=== PATIENT | male | born 1995 | race African-American/Black ===

== ENCOUNTER 2017-09-17 20:44 | Emergency (ER) | payer OTHER ==
[~2017-09-17] VITALS: Ht 165.1 cm; Wt 65.6 kg
[~2017-09-17 20:44] MED LIST: ACULAR0.5 % OD; ADVAIR DISK1 IN; ALBUTEROL90 MCG IN; ALDACTONE50 M1 OR; AMOX/K CLAV400 MG OR; AMOXICILLI400 MG/5 M OR; AMOXICILLIN500 MG PO; ANUSOL-HC25 MG RE; ASPIRIN ADULT L81 MG PO; AUGMENTIN500TAB PO; B6 FOLIC ACD PO; BACTRIM DS1 TAB PO; CALCIUM600 M3 PO; CEPHALEXIN500 MG OR; CLARITIN5 MG PO; CO Q-10100 MG PO; COLACE100 MG OR; COREG3.125 MG OR; DIGITEK0.125 MG OR; DIGOXIN0.25 MG OR; ENALAPRIL5 MG OR; FLAGYL500 MG PO; FLONASE SPRAY50 MCG; FLOVENT HFA44 MCG IN; KEFLEX500 MG PO; KENALOG15 G1 TOP; LASIX20 MG OR; LASIX20 MG PO; LASIX40 MG OR; LIDOCAINE VISC20 ML EX; LORTAB 10-325 M1 TAB PO; MIRALAX3350 NF PO; MOTRIN600 MG/TAB PO; MYCOPHENOLAT500 MG OR; NAPROSYN500 MG PO; NASONEX50 MCG/AC; PREDNISONE20 MG PO; PREDNISONE5 MG PO; PROBIOTIC; PROGRAF1 MG OR; PROGRAF5 MG PO; PROGRAF5 MG/ML PO; PROTONIX20 M1 OR; REGLAN10 MG PO; REGLAN10 MG/10 M OR; ROBITUSSIN AC10 ML PO; SEPTRA DS1 TAB PO; SINGULAIR5 MG PO; ULTRAM50 M1 OR; ULTRAM50 M1 PO; VALCYTE450 MG OR; VITAMIN B-625 MG PO; VITAMIN D31000 UNI1 PO; XOPENEX0.31 MG IN; ZANTAC 150 PO; ZOFRAN ODT4 MG PO; ZOFRAN4 MG/TAB PO; ZYRTEC10 M1 OR; [UNRECOGNIZED DRUG - OTHER] OR; [UNRECOGNIZED DRUG - OTHER] PO; [UNRECOGNIZED DRUG - REMARK]
[2017-09-17 23:44] LABS: URINE BILIRUBIN - DIPSTICK NEGATIVE (NEGATIVE); URINE BLOOD DIPSTICK NEGATIVE (NEGATIVE); URINE COLOR YELLOW; URINE GLUCOSE - DIPSTICK NEGATIVE (NEGATIVE); URINE KETONE NEGATIVE (NEGATIVE); URINE LEUK ESTERASE NEGATIVE (NEGATIVE); URINE NITRITE - DIPSTICK NEGATIVE (Negative); URINE PROTEIN - DIPSTICK NEGATIVE (NEG-TRACE); URINE UROBILINOGEN - DIPSTICK 0.2 E.U./dL (0.2)
[2017-09-17 23:45] LABS: URINE CLARITY CLEAR
[2017-09-18 01:30] VITALS: BP 106/72
== END 2017-09-18 01:30 | disposition home or self-care (01) | DRG 729 ==
LOC: ED 20:44
PROVIDERS: Emergency Medicine
DX: N43.3 Hydrocele, unspecified (principal); L98.8 Other specified disorders of the skin and subcutaneous tissue; G71.0 Muscular dystrophy; Z94.1 Heart transplant status; Z99.3 Dependence on wheelchair

== ENCOUNTER 2018-03-12 07:50 | Emergency (ER) | payer OTHER ==
[~2018-03-12] VITALS: Ht 167.6 cm; Wt 80.0 kg
[2018-03-12 09:07] VITALS: BP 124/94
== END 2018-03-12 09:07 | disposition home or self-care (01) ==
LOC: ED 07:50
DX: S93.401A Sprain of unspecified ligament of right ankle, initial encounter (principal); S93.601A Unspecified sprain of right foot, initial encounter; M25.471 Effusion, right ankle; G71.0 Muscular dystrophy; W04.XXXA Fall while being carried or supported by other persons, initial encounter; Y93.89 Activity, other specified; Y92.009 Unspecified place in unspecified non-institutional (private) residence as the place of occurrence of the external cause

== ENCOUNTER → 2018-06-08 | Outpatient (REF) | payer OTHER ==
[~2018-06-08] VITALS: Ht 167.6 cm; Wt 59.9 kg
[~2018-06-08] MED LIST changes: +AZITHROMYC100 MG/5 M PO; +LISINOPRIL5 MG PO; +METOPROLOL SUCC25 MG PO; +RAPAMUNE0.5 MG PO; +ZYRTEC10 M5 PO; +[UNRECOGNIZED DRUG - OTHER] IV
[2018-06-08 12:20] VITALS: BP 95/67
== END | disposition home or self-care (01) ==
LOC: INF 10:15
PROVIDERS: ATTEND Nurse Practitioner
DX: G71.00 Muscular dystrophy, unspecified (principal)

== ENCOUNTER 2018-06-12 18:15 | Emergency (ER) | payer OTHER ==
[~2018-06-12] VITALS: Ht 167.6 cm; Wt 60.0 kg
[~2018-06-12 18:15] MED LIST changes: -AZITHROMYC100 MG/5 M PO; -LISINOPRIL5 MG PO; -METOPROLOL SUCC25 MG PO; -RAPAMUNE0.5 MG PO; -ZYRTEC10 M5 PO; -[UNRECOGNIZED DRUG - OTHER] IV
[2018-06-12] MEDS ORDERED: PROGRAF5 MG PO (18:27)
[2018-06-12] MEDS ORDERED: [UNRECOGNIZED DRUG - OTHER] IV (18:28)
[2018-06-12] MEDS ORDERED: RAPAMUNE0.5 MG PO (18:32)
[2018-06-12] MEDS ORDERED: AZITHROMYC100 MG/5 M PO (18:34)
[2018-06-12] MEDS ORDERED: ZYRTEC10 M5 PO (18:35)
[2018-06-12] MEDS ORDERED: LISINOPRIL5 MG PO (18:54)
[2018-06-12] MEDS ORDERED: METOPROLOL SUCC25 MG PO (18:55)
[2018-06-12 19:29] LABS: HEMOGLOBIN 14.7 g/dl (14.0-18.0); MEAN CELL VOLUME 89.6 fL CALC (80.0-100.0); MEAN CORPUSCULAR HGB 29.9 pG CALC (26.0-32.0); MEAN CORPUSCULAR HGB CONC 33.4 g/L CALC (32.0-36.0); NEUT# 2.83 thou/uL (1.82-7.42); RED BLOOD COUNT 4.91 mill/uL (4.70-6.10); RED CELL DISTRI WIDTH 13.3 % (11.5-15.5)
[2018-06-12 19:40] LABS: ANION GAP 15 (6-22 (CALC)); BUN 12 mg/dL (9-20); BUN/CREATININE RATIO 54 (12-20 (CALC)); CARBON DIOXIDE 25 mmol/l (22-30); CHLORIDE 106 mmol/l (95-108); CREATININE 0.2 mg/dL (0.7-1.3); GFR > 60 ML/MIN (>=60 (CALC)); GFR FOR AFR.AMER. > 60 ML/MIN (>=60 (CALC)); POTASSIUM 3.6 mmol/l (3.5-5.1); SODIUM 143 mmol/l (137-146)
[2018-06-13 00:26] VITALS: BP 98/68
== END 2018-06-13 00:26 | disposition other institution (70) ==
LOC: ED 18:15
PROVIDERS: Family Medicine
DX: R07.9 Chest pain, unspecified (principal); G71.00 Muscular dystrophy, unspecified; Z94.1 Heart transplant status

== ENCOUNTER 2018-09-21 12:40 | Emergency (ER) | payer OTHER ==
[~2018-09-21] VITALS: Ht 167.6 cm; Wt 61.4 kg
[~2018-09-21 12:40] MED LIST changes: +AZITHROMYC100 MG/5 M PO; +LISINOPRIL5 MG PO; +METOPROLOL SUCC25 MG PO; +RAPAMUNE0.5 MG PO; +ZYRTEC10 M5 PO; +[UNRECOGNIZED DRUG - OTHER] IV
[2018-09-21] MEDS ORDERED: ZITHROMAX500 MG PO (15:09)
[2018-09-21 15:11] VITALS: BP 104/65
== END 2018-09-21 15:16 | disposition home or self-care (01) ==
LOC: ED 12:40
DX: J02.9 Acute pharyngitis, unspecified (principal); R05 Cough; Z94.1 Heart transplant status

== ENCOUNTER 2018-10-19 11:43 | Outpatient (REF) | payer MEDICAID ==
[~2018-10-19] VITALS: Ht 167.6 cm; Wt 61.2 kg
[~2018-10-19 11:43] MED LIST changes: +ZITHROMAX500 MG PO
[2018-10-19 13:05] VITALS: BP 109/74
== END 2018-10-19 15:22 | disposition home or self-care (01) ==
LOC: INF 11:43
PROVIDERS: ATTEND Psychiatry & Neurology Neurology with Special Qualifications in Child Neurology
DX: G71.00 Muscular dystrophy, unspecified (principal)

== ENCOUNTER 2018-10-26 11:31 | Outpatient (REF) | payer MEDICAID ==
[~2018-10-26] VITALS: Ht 167.6 cm; Wt 61.2 kg
[2018-10-26 14:24] VITALS: BP 109/68
== END 2018-10-26 16:59 | disposition home or self-care (01) ==
LOC: INF 11:31
PROVIDERS: ATTEND Psychiatry & Neurology Neurology with Special Qualifications in Child Neurology
DX: G71.00 Muscular dystrophy, unspecified (principal)

== ENCOUNTER 2018-11-01 10:00 | Outpatient (RCR) | payer MEDICAID | END 2018-11-01 11:00 | disposition home or self-care (01) | LOC: OT 10:00 | PROVIDERS: ATTEND Pediatrics | DX: G71.00 Muscular dystrophy, unspecified (principal) ==

== ENCOUNTER 2018-11-01 11:00 | Outpatient (RCR) | payer MEDICAID | END 2018-11-01 12:00 | disposition home or self-care (01) | LOC: PT 11:00 | PROVIDERS: ATTEND Pediatrics | DX: G71.00 Muscular dystrophy, unspecified (principal) ==

== ENCOUNTER → 2018-11-02 | Outpatient (REF) | payer MEDICAID ==
[~2018-11-02] VITALS: Ht 167.6 cm; Wt 60.3 kg
[2018-11-02 13:04] VITALS: BP 109/68
== END | disposition home or self-care (01) ==
LOC: INF 11:00
PROVIDERS: ATTEND Psychiatry & Neurology Neurology with Special Qualifications in Child Neurology
DX: G71.00 Muscular dystrophy, unspecified (principal)

== ENCOUNTER 2018-11-09 12:51 | Outpatient (REF) | payer MEDICAID ==
[2018-11-09 13:41] VITALS: BP 102/68
== END 2018-11-09 14:31 | disposition home or self-care (01) ==
LOC: INF 12:51
PROVIDERS: ATTEND Psychiatry & Neurology Neurology with Special Qualifications in Child Neurology
DX: G71.00 Muscular dystrophy, unspecified (principal)

== ENCOUNTER 2018-11-16 12:14 | Outpatient (REF) | payer MEDICAID ==
[2018-11-16 15:40] VITALS: BP 100/66
== END 2018-11-16 15:50 | disposition home or self-care (01) ==
LOC: INF 12:14
PROVIDERS: ATTEND Psychiatry & Neurology Neurology with Special Qualifications in Child Neurology
DX: G71.00 Muscular dystrophy, unspecified (principal)

== ENCOUNTER → 2018-11-23 | Outpatient (REF) | payer MEDICAID ==
[2018-11-23 13:36] VITALS: BP 105/62
== END | disposition home or self-care (01) ==
LOC: INF 11:00
PROVIDERS: ATTEND Psychiatry & Neurology Neurology with Special Qualifications in Child Neurology
DX: G71.00 Muscular dystrophy, unspecified (principal)

== ENCOUNTER 2018-11-30 12:13 | Emergency (ER) | payer MEDICAID ==
[~2018-11-30] VITALS: Ht 167.6 cm; Wt 60.0 kg
[2018-11-30 13:29] LABS: HEMATOCRIT 49.5 % (39.0-50.0); HEMOGLOBIN 16.3 g/dl (14.0-18.0); IMMATURE GRANULOCYTES 0.5 % (0.0-5.0); MEAN CELL VOLUME 90.5 fL CALC (80.0-100.0); MEAN CORPUSCULAR HGB 29.8 pG CALC (26.0-32.0); MEAN CORPUSCULAR HGB CONC 32.9 g/L CALC (32.0-36.0); NEUT# 5.93 thou/uL (1.82-7.42); RED BLOOD COUNT 5.47 mill/uL (4.70-6.10)
[2018-11-30 13:39] LABS: ALBUMIN 4.5 g/dL (3.2-5.0); ALKALINE PHOSPHATASE 58 u/l (38-126); ANION GAP 17 (6-22 (CALC)); BILIRUBIN, TOTAL 0.9 mg/dL (0.0-1.4); BUN 14 mg/dL (9-20); CARBON DIOXIDE 21 mmol/l (22-30); CHLORIDE 105 mmol/l (95-108); LIPASE 100 u/l (23-300); POTASSIUM 2.9 mmol/l (3.5-5.1); SGOT/AST 63 u/l (17-59); SODIUM 140 mmol/l (137-146); TOTAL PROTEIN 7.4 g/dL (6.3-8.2)
[2018-11-30 13:40] LABS: BUN/CREATININE RATIO 70 (12-20 (CALC)); CREATININE 0.2 mg/dL (0.7-1.3); GFR > 60 ML/MIN (>=60 (CALC)); GFR FOR AFR.AMER. > 60 ML/MIN (>=60 (CALC))
[2018-11-30 18:29] LABS: ANION GAP 15 (6-22 (CALC)); BUN 9 mg/dL (9-20); CARBON DIOXIDE 18 mmol/l (22-30); CHLORIDE 112 mmol/l (95-108); CREATININE < 0.2 mg/dL (0.7-1.3); GFR > 60 ML/MIN (>=60 (CALC)); GFR FOR AFR.AMER. > 60 ML/MIN (>=60 (CALC)); SODIUM 141 mmol/l (137-146)
[2018-11-30] MEDS ORDERED: ZITHROMAX500 MG PO (19:14)
[2018-11-30] MEDS ORDERED: ZOFRAN4 MG/TAB PO (19:14)
[2018-11-30 19:18] LABS: URINE BILIRUBIN - DIPSTICK NEGATIVE (NEGATIVE); URINE BLOOD DIPSTICK NEGATIVE (NEGATIVE); URINE COLOR YELLOW; URINE GLUCOSE - DIPSTICK NEGATIVE (NEGATIVE); URINE KETONE 40 mg/dL (NEGATIVE); URINE LEUK ESTERASE NEGATIVE (NEGATIVE); URINE NITRITE - DIPSTICK NEGATIVE (Negative); URINE PROTEIN - DIPSTICK TRACE mg/dL (NEG-TRACE); URINE UROBILINOGEN - DIPSTICK 0.2 E.U./dL (0.2)
[2018-11-30 20:20] VITALS: BP 102/62
== END 2018-11-30 20:25 | disposition home or self-care (01) ==
LOC: ED 12:13
PROVIDERS: Emergency Medicine
DX: K52.9 Noninfective gastroenteritis and colitis, unspecified (principal); E86.0 Dehydration; Z94.1 Heart transplant status; R19.7 Diarrhea, unspecified; R11.2 Nausea with vomiting, unspecified; R10.33 Periumbilical pain
CPT/HCPCS: Q9967

== ENCOUNTER 2019-08-02 | Observation (INO) | payer MEDICAID ==
--- NOTE | 2019-08-02 11:32 | NUR ---
PT TO ROOM FOR EXAM PER W/C
--- NOTE | 2019-08-02 11:50 | NUR ---
RIGHT SUBCLAVIAN PORT ACCESSED; PT TOLERATED WELL; LABS OBTAINED AND PT MEDICATED FOR LOWER BACK PAIN RATING 10 OUT OF 10 PER MAR; MOTHER AT BEDSIDE; PT TO RADIOLOGY IN STABLE CONDITION
[2019-08-02 12:31] LABS: HEMATOCRIT 44.8 % (39.0-50.0); HEMOGLOBIN 14.7 g/dl (14.0-18.0); IMMATURE GRANULOCYTES 0.3 % (0.0-5.0); MEAN CELL VOLUME 88.9 fL CALC (80.0-100.0); MEAN CORPUSCULAR HGB 29.2 pG CALC (26.0-32.0); MEAN CORPUSCULAR HGB CONC 32.8 g/L CALC (32.0-36.0); NEUT# 3.24 thou/uL (1.82-7.42); RED BLOOD COUNT 5.04 mill/uL (4.70-6.10); RED CELL DISTRI WIDTH 13.2 % (11.5-15.5)
--- NOTE | 2019-08-02 12:50 | NUR ---
PT C/O CONTINUED N/V AND LOWER BACK PAIN RATING 10 OUT OF 10 PT HAD 200 ML OF BILE COLORED EMESIS NOTED; MD NOTIFIED AND PT MEDICATED PER MAR; MONITORING DEVICES APPLIED; PARENTS AT BEDSIDE; WILL CONTINUE TO MONITOR
[2019-08-02 12:55] LABS: ALKALINE PHOSPHATASE 60 u/l (38-126); BILIRUBIN, TOTAL 0.4 mg/dL (0.0-1.4); BUN 13 mg/dL (9-20); CHLORIDE 104 mmol/l (95-108); LIPASE 29 u/l (23-300); SODIUM 139 mmol/l (137-146)
[2019-08-02 13:03] LABS: ALBUMIN 4.5 g/dL (3.2-5.0); ANION GAP 18 (6-22 (CALC)); BUN/CREATININE RATIO 65 (12-20 (CALC)); CARBON DIOXIDE 20 mmol/l (22-30); CREATININE 0.2 mg/dL (0.7-1.3); GFR > 60 ML/MIN (>=60 (CALC)); GFR FOR AFR.AMER. > 60 ML/MIN (>=60 (CALC)); SGOT/AST 74 u/l (17-59); TOTAL PROTEIN 7.7 g/dL (6.3-8.2)
--- NOTE | 2019-08-02 13:50 | NUR ---
PT RESTING ON STRETCHER; C/O CONTINUED PAIN; STATES NAUSEA HAS RESOLVED; VSS; PARENTS AT BEDSIDE; CALL LIGHT WITHIN REACH; WILL CONTINUE TO MONITOR
--- NOTE | 2019-08-02 14:20 | NUR ---
PT MEDICATED FOR LOWER BACK PAIN RATING 9 OUT OF 10 PER MAR; MONITORING DEVICES IN PLACE; PARENTS AT BEDSIDE; CALL LIGHT WITHIN REACH; WILL CONTINUE TO MONITOR
[2019-08-02 14:33] LABS: URINE BILIRUBIN - DIPSTICK NEGATIVE (NEGATIVE); URINE BLOOD DIPSTICK LARGE (NEGATIVE); URINE COLOR RED; URINE GLUCOSE - DIPSTICK NEGATIVE (NEGATIVE); URINE KETONE NEGATIVE (NEGATIVE); URINE LEUK ESTERASE NEGATIVE (NEGATIVE); URINE NITRITE - DIPSTICK NEGATIVE (Negative); URINE PH 5.5 (4.5-8.0); URINE PROTEIN - DIPSTICK 100 mg/dL (NEG-TRACE); URINE RBC TNTC RBC/hpf (0-5); URINE SPECIFIC GRAVITY >=1.030; URINE UROBILINOGEN - DIPSTICK 0.2 E.U./dL (0.2)
[2019-08-02 14:34] LABS: URINE SQUAMOUS EPITHELIAL CELL FEW EPI/hpf (0-FEW)
--- NOTE | 2019-08-02 15:18 | NUR ---
PT RESTING ON STRETCHER; NO S/S OF DISTRESS NOTED; VSS; PARENTS AT BEDSIDE; WILL CONTINUE TO MONITOR
--- NOTE | 2019-08-02 16:18 | NUR ---
PT RESTING ON STRETCHER; NO S/S OF DISTRESS NOTED; PT TOLERATING PO FLUIDS WELL; PARENTS AT BEDSIDE; MONITORING DEVICES IN PLACE; CALL LIGHT WITHIN REACH; WILL CONTINUE TO MONITOR
[2019-08-02] MEDS ORDERED: PLAVIX75 MG PO (16:41)
[2019-08-02] MEDS ORDERED: LASIX 20 MG TAB20 MG PO (16:43)
--- NOTE | 2019-08-02 17:15 | NUR ---
CONSENT FOR SURGERY OBTAINED AT THIS TIME FROM MOTHER AND PT; DENIES ANY OTHER NEEDS AT THIS TIME; VSS; CALL LIGHT WITHIN REACH; WILL CONTINUE TO MONITOR
--- NOTE | 2019-08-02 17:50 | NUR ---
Admission Note Report Given to: THOM Transported by: Wheelchair X Stretcher Transported with: X Nurse Transporter X Patent IV O2 Pot Firer
--- NOTE | 2019-08-02 18:06 | NUR ---
RECEIVED FROM ER VIA STRETCHER INTO ROOM 268. TRANSFERRED TO BED. ADMISION VS TAKE. ORIENTED TO SURROUNDINGS. CALL VERDUZCO IN REACH. FAMILY AT BEDISDE.
--- NOTE | 2019-08-02 19:00 | NUR ---
PATIENT MOM HAS TALKED TO PATIENTS DONOR RELATIONS OFFICER AT [facility] [place] THEY WANT HIM TRANSFERRED THERE. DISCUSSED WITH Tashia ARDON/ALECIA.
--- NOTE | 2019-08-02 19:30 | NUR ---
RESTING IN BED. RESP NON-LABORED, LUNGS CLEAR THROUGHOUT. ABD SOFT WITH BOWEL SOUNDS PRESENT. APTIENT STATES WAS VOIDING BLOOD AT HOME. HAS NOT VOIDED SINCE ARRIVAL TO UNIT. RIGHT CHEST PORT ACCESSED IN ER, DSG CDI.
--- NOTE | 2019-08-02 19:52 | NUR ---
called [facility] [place]. spoke to jace at [phone]. Gave information regarding pt and accepting physician stated she will call them and talk to the doctors and will call back with an update.
[2019-08-02 21:10] VITALS: BP 100/68
--- NOTE | 2019-08-02 21:15 | NUR ---
[facility] CONTACTED AT THIS TIME FOR TRANSPORT TO [facility]. BORING MACHINE FEEDER SPOKE WITH MEIR. EXPECTING CALL BACK WITH RAFAEL CARR.
--- NOTE | 2019-08-02 21:50 | NUR ---
PT C/O RIGHT FLANK AND LOWER BACK PAIN 9-10. DR ORTEGA NOTIFIED AT THIS TIME. PAIN MEDICATION ORDERS RECEIVED AT THIS TIME. WILL MEDICATE WHEN PROFILED.
--- NOTE | 2019-08-02 22:32 | NUR ---
BED NUMBER RECEIEVED FROM RENAE AT [facility]. PT WILL BE GOING TO BED #[id number]. FAMILY MADE AWARE.
--- NOTE | 2019-08-02 23:50 | NUR ---
NURSE TO NURSE REPORT CALLED TO KRISTIE AT [facility]. PT LEFT VIA [facility] IN STABLE CONDITION.
== END 2019-08-02 23:41 | disposition short-term general hospital (02) ==
PROVIDERS: ADMIT Internal Medicine
DX: N13.2 Hydronephrosis with renal and ureteral calculous obstruction (principal); G71.01 Duchenne or Becker muscular dystrophy; Z94.1 Heart transplant status
CPT/HCPCS: G0378

== ENCOUNTER 2019-10-26 | Emergency (ER) | payer MEDICAID ==
[~2019-10-26] MED LIST changes: +LASIX 20 MG TAB20 MG PO; +PLAVIX75 MG PO
[2019-10-26 23:41] LABS: HEMATOCRIT 42.7 % (39.0-50.0); HEMOGLOBIN 13.8 g/dl (14.0-18.0); IMMATURE GRANULOCYTES 0.4 % (0.0-5.0); MEAN CELL VOLUME 90.3 fL CALC (80.0-100.0); MEAN CORPUSCULAR HGB 29.2 pG CALC (26.0-32.0); MEAN CORPUSCULAR HGB CONC 32.3 g/L CALC (32.0-36.0); NEUT# 6.64 thou/uL (1.82-7.42); RED BLOOD COUNT 4.73 mill/uL (4.70-6.10); RED CELL DISTRI WIDTH 13.4 % (11.5-15.5)
[2019-10-26] MEDS ORDERED: HYDROCHLOROT12.5 MG PO (23:48)
[2019-10-26 23:52] LABS: ALBUMIN 3.7 g/dL (3.2-5.0); ALKALINE PHOSPHATASE 44 u/l (38-126); ANION GAP 9 (6-22 (CALC)); BILIRUBIN, TOTAL 0.6 mg/dL (0.0-1.4); BUN 16 mg/dL (9-20); BUN/CREATININE RATIO 80 (12-20 (CALC)); CARBON DIOXIDE 24 mmol/l (22-30); CHLORIDE 106 mmol/l (95-108); CREATININE 0.2 mg/dL (0.7-1.3); GFR > 60 ML/MIN (>=60 (CALC)); GFR FOR AFR.AMER. > 60 ML/MIN (>=60 (CALC)); POTASSIUM 3.2 mmol/l (3.5-5.1); SGOT/AST 66 u/l (17-59); SODIUM 136 mmol/l (137-146); TOTAL PROTEIN 6.3 g/dL (6.3-8.2)
[2019-10-27] MEDS ORDERED: AMOX/K CLAV875 M1 PO (00:54)
[2019-10-27] MEDS ORDERED: IBUPROFEN600 MG PO (00:54)
== END 2019-10-27 01:40 | disposition home or self-care (01) ==
PROVIDERS: Emergency Medicine
DX: L02.02 Furuncle of face (principal); G71.01 Duchenne or Becker muscular dystrophy; Z94.1 Heart transplant status; Z79.899 Other long term (current) drug therapy
CPT/HCPCS: Q9967

== ENCOUNTER 2020-03-20 11:51 | Observation (INO) | payer MEDICAID ==
[~2020-03-20] VITALS: Ht 165.1 cm; Wt 67.2 kg
[~2020-03-20 11:51] MED LIST changes: +AMOX/K CLAV875 M1 PO; +HYDROCHLOROT12.5 MG PO; +IBUPROFEN600 MG PO
--- NOTE | 2020-03-20 12:05 | NUR ---
PT TO ROOM VIA WC WITH FATHER FOR TRIAGE
[2020-03-20 12:26] LABS: HEMATOCRIT 48.4 % (39.0-50.0); HEMOGLOBIN 15.4 g/dl (14.0-18.0); IMMATURE GRANULOCYTES 0.7 % (0.0-5.0); MEAN CELL VOLUME 90.8 fL CALC (80.0-100.0); MEAN CORPUSCULAR HGB 28.9 pG CALC (26.0-32.0); MEAN CORPUSCULAR HGB CONC 31.8 g/dL CAL (32.0-36.0); NEUT# 5.45 thou/uL (1.82-7.42); RED BLOOD COUNT 5.33 mill/uL (4.70-6.10); RED CELL DISTRI WIDTH 13.2 % (11.5-15.5)
[2020-03-20 12:38] LABS: ALBUMIN 4.3 g/dL (3.2-5.0); ALKALINE PHOSPHATASE 45 u/l (38-126); ANION GAP 12 (6-22 (CALC)); BUN 12 mg/dL (9-20); CARBON DIOXIDE 25 mmol/l (22-30); CHLORIDE 100 mmol/l (95-108); POTASSIUM 2.8 mmol/l (3.5-5.1); SGOT/AST 49 u/l (17-59); SODIUM 135 mmol/l (137-146); TOTAL PROTEIN 7.1 g/dL (6.3-8.2)
--- NOTE | 2020-03-20 12:40 | NUR ---
REC'D CALL FROM FAMILY SERVICES ASSISTANT AT [facility] THAT IS INVOLVED IN [facility] PROVIDED WITH 2 MD NUMBERS FOR CALL WHEN SEES PATIENT TO DISCUSS PLAN OF CARE RELATED TO PT HISTORY. [phone] NOTIFIED
[2020-03-20 12:43] LABS: BILIRUBIN, TOTAL 0.9 mg/dL (0.0-1.4); BUN/CREATININE RATIO 60 (12-20 (CALC)); CREATININE 0.2 mg/dL (0.7-1.3); GFR > 60 ML/MIN (>=60 (CALC)); GFR FOR AFR.AMER. > 60 ML/MIN (>=60 (CALC))
--- NOTE | 2020-03-20 13:48 | NUR ---
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
--- NOTE | 2020-03-20 13:50 | NUR ---
DR YOON IN ROOM SPEAKING WITH PT REGARDING RESULTS.
--- NOTE | 2020-03-20 14:22 | NUR ---
IV MAGNESIUM AND POTASSIUM INFUSING ORDERED, TOOK PO POTAASSIUM WITHOUT INCIDENT, FATHER REMAINS AT BEDSIDE
--- NOTE | 2020-03-20 15:32 | NUR ---
REPORT CALLED TO DYANA ON MED SURG
--- NOTE | 2020-03-20 15:50 | NUR ---
PT ARRIVED TO [facility] ROOM 269 VIA STRETCHER ACCOMPAINED BY MACY VILLAFANA AND HIS FATHER. PT SLIDE FROM STRETCHER TO BED WITH NO DIFFICULTY. 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 ASSESSMENT AND VITALS OBTAINED AT THIS TIME. BP 100/72, HR 86, O2 100% ON ROOM AIR. RESPIRATIONS ARE EVEN AND UNLABORED WITH NO SIGNS OF DIFFICULTY. LUNG SOUNDS ARE CLEAR, PT DENIES ANY SOB. HEART RHYTHM IS NORMAL WITH TELE IN PLACE. PT INFORMS WRITTER THAT HE HAS HAD A HEART TRANSPLANT. BOWEL SOUNDS ARE ACTIVE IN ALL QUADRANTS WITH NO TEDNERNESS, LAST REPORTED BM 03/19/20. RADIAL AND PEDAL PULSES ARE WEAK WITH NORMAL CAPILLARY REFILL.PT PRESENTS WITH PORT IN RIGHT CHEST WALL, ACCESSED TODAY. MAG AND K CURRENT FLOWING WITH EASE, SITE APPEARS HEALTHY AND PATENT. SKIN IS WARM AND DRY WITH NO BREAK DOWN OR EDEMA. PT INFORMED WRITTER THAT HIS FEET ARE" NOT SWOLLEN, THEIR JUST CHUBBY". PT INFORMS WRITTER THAT HE PRESENTED TO THE ER WHEN HE STARTED HAVING A BURNING SENSATION IN HIS THROAT WIHEN RECIEVING HIS WEEKLY INFUSION FOR HIS MUSCULAR DYSTROPHY. PT STATES THAT HE NO LONGER HAS THAT SENSATION AND DOESNT HAVE ANY CURRENT PAINS.REMINDED PT OF REJECTION MEDICATION THAT WAS NEEDED TO BE BROUGHT TO HOSPITAL DUE TO HOSPITAL NOT CARRYING THEM. PT VERBALIZED UNDERSTANDING AND STATED THAT HIS MOTHER WAS TO BRING THEM.PT DENIES ANY ALLERGIES, ALLERGY BAND APPLIED. PT DENIES ANY PAINS OR NEEDS AT THIS TIME. ALL SAFETY PRECAUTIONS ARE IN PLACE, PT ORIENTED TO CALL SYSTEM AND ROOM. WILL CONTINUE TO MONITOR.
--- NOTE | 2020-03-20 15:55 | NUR ---
PT TRANSPORTED TO MED SURG ON TELE, ALL BELONGINGS AND DAD WITH PT AT TIME OF TRANSFER, NURSE AT BEDSIDE ON ARRIVAL TO UNIT
[2020-03-20 16:00] VITALS: BP 100/72
[2020-03-20 19:24] VITALS: BP 97/67
--- NOTE | 2020-03-20 20:20 | NUR ---
PT LAYING IN BED RESTING, NO APPARENT DISTRESS, RESPIRATIONS REG & UNLABORED. PHYSICAL ASSESMENT COMPLETE. PT CURRENTLY DENIES PAIN OR DISCOMFORT. SCHEDULED MEDS ADMINISTERED, SEE E-MAR. PTS MOTHER AT BEDSIDE. TROPONIN LEVEL DRAWN FROM R CHEST PORT, PORT FLUSHED PER [facility]. PT DENIES NEEDS AT THIS TIME. PLAN OF CARE REVIEWED, PT DENIES QUESTIONS, VERBALIZES UNDERSTANDING. ITEMS WITHIN REACH, BED LOCKED IN LOW POSITION W/ BEDRAILS UP X2. CALL VERDUZCO WITHIN REACH, AGREES TO CALL PRN.
--- NOTE | 2020-03-20 21:59 | NUR ---
TROPONIN RESULTED AND WNL. NO FURTHER ACTION NEEDED.
[2020-03-20 23:48] VITALS: BP 83/53
--- NOTE | 2020-03-21 01:50 | NUR ---
PT APPEARS TO BE SLEEPING COMFORTABLY, NO APPARENT DISTRESS, RESPIRATIONS REGULAR AND UNLABORED. ITEMS REMAIN WITHIN REACH, BED REMAINS LOCKED IN LOW POSITION W/ BEDRAILS UP X2. CALL VERDUZCO REMAINS WITHIN REACH.
--- NOTE | 2020-03-21 03:05 | NUR ---
AM LABS DRAWN FROM R CHEST PORT, PORT FLUSHED PER [facility] PROTOCOL, SEE E-MAR. PT REPOSITIONED FOR COMFORT PER HIS REQUEST. DENIES FURTHER NEEDS AT THIS TIME. CALL VERDUZCO REMAINS WITHIN REACH, AGREES TO CALL PRN.
--- NOTE | 2020-03-21 04:30 | NUR ---
TROPONIN RESULTED, RESULTS ASSESSED, NO INTERVENTION NECESSARY. NEXT TROPONIN DUE 0900.
[2020-03-21 04:31] VITALS: BP 86/65
[2020-03-21 05:35] LABS: CHOLESTEROL HDL RATIO 2.6 (<4.4 (CALC))
[2020-03-21 06:22] LABS: BUN 12 mg/dL (9-20); CARBON DIOXIDE 27 mmol/l (22-30); CHLORIDE 100 mmol/l (95-108); CREATININE < 0.2 mg/dL (0.7-1.3); GFR > 60 ML/MIN (>=60 (CALC)); GFR FOR AFR.AMER. > 60 ML/MIN (>=60 (CALC)); SODIUM 133 mmol/l (137-146)
[2020-03-21 06:24] LABS: ANION GAP 10 (6-22 (CALC)); POTASSIUM 4.3 mmol/l (3.5-5.1)
[2020-03-21 08:10] VITALS: BP 100/69
--- NOTE | 2020-03-21 08:10 | NUR ---
ASSESSMENT IS COMPLTED: IV SITE IS FREE FROM REDNESS OR EDEMA. HR IS REG,PULSES ARE STRONG X4, ABD IS SOFT WITH ACTIVE BS. BREATH SOUNDS ARE CLEAR,BILATERALLY. TELE MONITOR IN PLACE.PT HAD A SMALL INCONTINENCE OF UA THIS AM.
[2020-03-21 10:30] VITALS: BP 109/74
--- NOTE | 2020-03-21 11:55 | NUR ---
DISCHARGE INSTRUCTIONS AND IV SITE DISCONTINUED CATHETER INTACT. NO REDNESS OR EDEMA. HOME MEDICATIONS GIVEN TO FAMILY MEMBER.
--- NOTE | 2020-03-21 12:00 | NUR ---
PT DISCHARGED. IV SITE DISCONTINUED BY MARYJO CAVAZOS AFTER FLUSHING WITH HEPARIN. PT TOLERATED WELL. FAMILY IN THE ROOM.
--- NOTE | 2020-03-21 13:48 | NUR ---
Discharge instructions given. Patient verbalizes understanding of same. Discharged in stable condition via Wheelchair to Home with family. All belongings sent with pt.
== END 2020-03-21 12:00 | disposition home or self-care (01) ==
LOC: ED 11:51 → ED-I 13:28 → ED 13:45 → ED-I 13:46 → MS2 14:35
PROVIDERS: Family Medicine; ADMIT Internal Medicine; ATTEND Internal Medicine
DX: R07.9 Chest pain, unspecified (principal); E83.42 Hypomagnesemia; E87.6 Hypokalemia; I10 Essential (primary) hypertension; G71.01 Duchenne or Becker muscular dystrophy; Z94.1 Heart transplant status; Z95.5 Presence of coronary angioplasty implant and graft; Z20.828 Contact with and (suspected) exposure to other viral communicable diseases
CPT/HCPCS: G0378; J3475

== ENCOUNTER 2020-09-21 08:52 | Emergency (ER) | payer MEDICAID ==
[~2020-09-21] VITALS: Ht 165.1 cm; Wt 70.0 kg
[2020-09-21 10:11] VITALS: BP 116/73
== END 2020-09-21 11:06 | disposition home or self-care (01) ==
LOC: ED 08:52
DX: M25.521 Pain in right elbow (principal); M79.631 Pain in right forearm; I10 Essential (primary) hypertension; G71.01 Duchenne or Becker muscular dystrophy; Z94.1 Heart transplant status; Z95.5 Presence of coronary angioplasty implant and graft

== ENCOUNTER 2020-10-28 09:09 | Emergency (ER) | payer MEDICAID ==
[~2020-10-28] VITALS: Ht 165.1 cm; Wt 65.0 kg
[2020-10-28 09:52] LABS: HEMATOCRIT 43.8 % (39.0-50.0); HEMOGLOBIN 13.9 g/dl (14.0-18.0); IMMATURE GRANULOCYTES 0.5 % (0.0-5.0); MEAN CELL VOLUME 90.1 fL CALC (80.0-100.0); MEAN CORPUSCULAR HGB 28.6 pG CALC (26.0-32.0); MEAN CORPUSCULAR HGB CONC 31.7 g/dL CAL (32.0-36.0); NEUT# 4.68 thou/uL (1.82-7.42); RED BLOOD COUNT 4.86 mill/uL (4.70-6.10); RED CELL DISTRI WIDTH 13.5 % (11.5-15.5)
[2020-10-28 09:59] LABS: URINE BLOOD DIPSTICK LARGE (NEGATIVE); URINE COLOR BROWN; URINE GLUCOSE - DIPSTICK NEGATIVE (NEGATIVE); URINE KETONE TRACE mg/dL (NEGATIVE); URINE LEUK ESTERASE NEGATIVE (NEGATIVE); URINE NITRITE - DIPSTICK NEGATIVE (Negative); URINE PH 6.5 (4.5-8.0); URINE PROTEIN - DIPSTICK TRACE mg/dL (NEG-TRACE); URINE SPECIFIC GRAVITY 1.025; URINE UROBILINOGEN - DIPSTICK 0.2 E.U./dL (0.2)
[2020-10-28 10:11] LABS: URINE BILIRUBIN - DIPSTICK SMALL (NEGATIVE)
[2020-10-28 10:13] LABS: URINE RBC >100 RBC/hpf (0-5); URINE WBC 0-2 WBC/hpf (0-5)
[2020-10-28 10:19] LABS: ALBUMIN 3.9 g/dL (3.2-5.0); ALKALINE PHOSPHATASE 47 u/l (38-126); ANION GAP 10 (6-22 (CALC)); BILIRUBIN, TOTAL 0.7 mg/dL (0.0-1.4); BUN 11 mg/dL (9-20); CARBON DIOXIDE 28 mmol/l (22-30); CHLORIDE 101 mmol/l (95-108); CREATININE < 0.2 mg/dL (0.7-1.3); GFR > 60 ML/MIN (>=60 (CALC)); GFR FOR AFR.AMER. > 60 ML/MIN (>=60 (CALC)); LIPASE 38 u/l (23-300); SGOT/AST 51 u/l (17-59); SODIUM 135 mmol/l (137-146); TOTAL PROTEIN 6.5 g/dL (6.3-8.2)
[2020-10-28] MEDS ORDERED: HYDROCO/APAP1 TA9 PO (10:42)
[2020-10-28] MEDS ORDERED: TAMSULOSIN0.4 MG PO (10:42)
[2020-10-28] MEDS ORDERED: ONDANSETRON4 MG PO (10:42)
[2020-10-28 11:10] VITALS: BP 106/72
== END 2020-10-28 11:20 | disposition home or self-care (01) ==
LOC: ED 09:09
PROVIDERS: Family Medicine
DX: N20.2 Calculus of kidney with calculus of ureter (principal); I10 Essential (primary) hypertension; G71.01 Duchenne or Becker muscular dystrophy; Z94.1 Heart transplant status; Z95.5 Presence of coronary angioplasty implant and graft; Z87.442 Personal history of urinary calculi

== ENCOUNTER 2021-02-15 02:17 | Emergency (ER) | payer MEDICAID ==
[~2021-02-15] VITALS: Ht 165.1 cm; Wt 65.0 kg
[~2021-02-15 02:17] MED LIST changes: +HYDROCO/APAP1 TA9 PO; +ONDANSETRON4 MG PO; +TAMSULOSIN0.4 MG PO
[2021-02-15 04:02] LABS: HEMATOCRIT 45.7 % (39.0-50.0); HEMOGLOBIN 14.3 g/dl (14.0-18.0); IMMATURE GRANULOCYTES 0.8 % (0.0-5.0); MEAN CELL VOLUME 92.5 fL CALC (80.0-100.0); MEAN CORPUSCULAR HGB 28.9 pG CALC (26.0-32.0); MEAN CORPUSCULAR HGB CONC 31.3 g/dL CAL (32.0-36.0); NEUT# 6.56 thou/uL (1.82-7.42); RED BLOOD COUNT 4.94 mill/uL (4.70-6.10); RED CELL DISTRI WIDTH 13.8 % (11.5-15.5)
[2021-02-15 04:09] LABS: ALBUMIN 3.7 g/dL (3.2-5.0); ALKALINE PHOSPHATASE 60 u/l (38-126); ANION GAP 10 (6-22 (CALC)); BUN 20 mg/dL (9-20); BUN/CREATININE RATIO 31 (12-20 (CALC)); CARBON DIOXIDE 28 mmol/l (22-30); CHLORIDE 104 mmol/l (95-108); CREATININE 0.7 mg/dL (0.7-1.3); GFR > 60 ML/MIN (>=60 (CALC)); GFR FOR AFR.AMER. > 60 ML/MIN (>=60 (CALC)); POTASSIUM 4.3 mmol/l (3.5-5.1); SGOT/AST 73 u/l (17-59); SODIUM 137 mmol/l (137-146); TOTAL PROTEIN 6.2 g/dL (6.3-8.2)
[2021-02-15 04:10] LABS: BILIRUBIN, TOTAL 0.2 mg/dL (0.0-1.4)
[2021-02-15 05:25] VITALS: BP 110/81
== END 2021-02-15 05:35 | disposition home or self-care (01) ==
LOC: ED 02:17
PROVIDERS: Emergency Medicine
DX: R60.0 Localized edema (principal); G71.01 Duchenne or Becker muscular dystrophy; I10 Essential (primary) hypertension; Z94.1 Heart transplant status

== ENCOUNTER 2021-07-11 10:15 | Emergency (ER) | payer MEDICAID ==
[~2021-07-11] VITALS: Ht 165.1 cm; Wt 65.7 kg
[2021-07-11 11:31] LABS: HEMATOCRIT 43.4 % (39.0-50.0); HEMOGLOBIN 13.7 g/dl (14.0-18.0); IMMATURE GRANULOCYTES 0.4 % (0.0-5.0); MEAN CELL VOLUME 91.6 fL CALC (80.0-100.0); MEAN CORPUSCULAR HGB 28.9 pG CALC (26.0-32.0); MEAN CORPUSCULAR HGB CONC 31.6 g/dL CAL (32.0-36.0); NEUT# 8.31 thou/uL (1.82-7.42); RED BLOOD COUNT 4.74 mill/uL (4.70-6.10); RED CELL DISTRI WIDTH 14.6 % (11.5-15.5)
[2021-07-11 11:51] LABS: ALBUMIN 3.9 g/dL (3.2-5.0); ALKALINE PHOSPHATASE 45 u/l (38-126); ANION GAP 10 (6-22 (CALC)); BILIRUBIN, TOTAL 0.8 mg/dL (0.0-1.4); BUN 11 mg/dL (9-20); CARBON DIOXIDE 28 mmol/l (22-30); CHLORIDE 103 mmol/l (95-108); SGOT/AST 38 u/l (17-59); SODIUM 136 mmol/l (137-146); TOTAL PROTEIN 6.5 g/dL (6.3-8.2)
[2021-07-11 11:53] LABS: BUN/CREATININE RATIO 55 (12-20 (CALC)); CREATININE 0.2 mg/dL (0.7-1.3); GFR > 60 ML/MIN (>=60 (CALC)); GFR FOR AFR.AMER. > 60 ML/MIN (>=60 (CALC))
[2021-07-11] MEDS ORDERED: ULTRAM50 MG PO (13:26)
[2021-07-11] MEDS ORDERED: BACTRIM DS1 TAB PO (13:26)
[2021-07-11 13:57] VITALS: BP 121/83
[2021-07-11] MEDS ORDERED: DOXYCYCL HYC100 MG PO (14:02)
== END 2021-07-11 13:55 | disposition home or self-care (01) ==
LOC: ED 10:15
DX: L73.9 Follicular disorder, unspecified (principal); G71.01 Duchenne or Becker muscular dystrophy; I10 Essential (primary) hypertension; Z94.1 Heart transplant status; Z99.3 Dependence on wheelchair; Z95.5 Presence of coronary angioplasty implant and graft
CPT/HCPCS: Q9967

== ENCOUNTER 2021-08-21 09:02 | Emergency (ER) | payer MEDICAID ==
[~2021-08-21] VITALS: Ht 165.1 cm; Wt 70.9 kg
[~2021-08-21 09:02] MED LIST changes: +DOXYCYCL HYC100 MG PO; +ULTRAM50 MG PO
[2021-08-21 10:02] LABS: URINE BILIRUBIN - DIPSTICK NEGATIVE (NEGATIVE); URINE BLOOD DIPSTICK MODERATE (NEGATIVE); URINE COLOR YELLOW; URINE GLUCOSE - DIPSTICK NEGATIVE (NEGATIVE); URINE KETONE 15 mg/dL (NEGATIVE); URINE LEUK ESTERASE NEGATIVE (NEGATIVE); URINE PROTEIN - DIPSTICK NEGATIVE (NEG-TRACE); URINE SPECIFIC GRAVITY >=1.030; URINE UROBILINOGEN - DIPSTICK 0.2 E.U./dL (0.2)
[2021-08-21 10:14] LABS: URINE NITRITE - DIPSTICK NEGATIVE (Negative)
[2021-08-21 10:26] LABS: URINE WBC 0-2 WBC/hpf (0-5)
[2021-08-21 10:36] LABS: IMMATURE GRANULOCYTES 0.3 % (0.0-5.0); MEAN CELL VOLUME 91.6 fL CALC (80.0-100.0); MEAN CORPUSCULAR HGB 29.3 pG CALC (26.0-32.0); NEUT# 10.14 thou/uL (1.82-7.42); RED BLOOD COUNT 5.22 mill/uL (4.70-6.10); RED CELL DISTRI WIDTH 13.3 % (11.5-15.5)
[2021-08-21 10:42] LABS: ALKALINE PHOSPHATASE 56 u/l (38-126); ANION GAP 16 (6-22 (CALC)); BILIRUBIN, TOTAL 0.7 mg/dL (0.0-1.4); BUN 14 mg/dL (9-20); CARBON DIOXIDE 26 mmol/l (22-30); CHLORIDE 103 mmol/l (95-108); LIPASE 32 u/l (23-300); POTASSIUM 3.3 mmol/l (3.5-5.1); SODIUM 142 mmol/l (137-146); TOTAL PROTEIN 7.7 g/dL (6.3-8.2)
[2021-08-21 10:49] LABS: ALBUMIN 4.4 g/dL (3.2-5.0); BUN/CREATININE RATIO 70 (12-20 (CALC)); CREATININE 0.2 mg/dL (0.7-1.3); GFR > 60 ML/MIN (>=60 (CALC)); GFR FOR AFR.AMER. > 60 ML/MIN (>=60 (CALC)); SGOT/AST 96 u/l (17-59)
[2021-08-21 10:52] LABS: HEMATOCRIT 47.8 % (39.0-50.0); HEMOGLOBIN 15.3 g/dl (14.0-18.0)
[2021-08-21 12:21] VITALS: BP 99/64
[2021-08-21] MEDS ORDERED: ZOFRAN4 MG/TAB PO (12:36)
== END 2021-08-21 13:00 | disposition home or self-care (01) ==
LOC: ED 09:02
DX: K52.9 Noninfective gastroenteritis and colitis, unspecified (principal); E87.6 Hypokalemia; G82.20 Paraplegia, unspecified; I10 Essential (primary) hypertension; Z94.1 Heart transplant status; Z95.5 Presence of coronary angioplasty implant and graft; Z20.822 Contact with and (suspected) exposure to COVID-19
CPT/HCPCS: Q9967

== ENCOUNTER 2021-12-02 10:13 | Emergency (ER) | payer MEDICAID ==
[~2021-12-02] VITALS: Ht 165.1 cm; Wt 70.0 kg
[2021-12-02 10:39] VITALS: BP 129/92
[2021-12-02 11:19] LABS: IMMATURE GRANULOCYTES 0.6 % (0.0-5.0); MEAN CELL VOLUME 93.3 fL CALC (80.0-100.0); MEAN CORPUSCULAR HGB 29.4 pG CALC (26.0-32.0); MEAN CORPUSCULAR HGB CONC 31.5 g/dL CAL (32.0-36.0); NEUT# 4.54 thou/uL (1.82-7.42); RED BLOOD COUNT 4.35 mill/uL (4.70-6.10); RED CELL DISTRI WIDTH 13.7 % (11.5-15.5)
[2021-12-02 11:22] LABS: HEMATOCRIT 40.6 % (39.0-50.0); HEMOGLOBIN 12.8 g/dl (14.0-18.0)
[2021-12-02 11:41] LABS: URINE BILIRUBIN - DIPSTICK NEGATIVE (NEGATIVE); URINE BLOOD DIPSTICK NEGATIVE (NEGATIVE); URINE COLOR YELLOW; URINE GLUCOSE - DIPSTICK NEGATIVE (NEGATIVE); URINE KETONE NEGATIVE (NEGATIVE); URINE LEUK ESTERASE NEGATIVE (NEGATIVE); URINE PH 5.5 (4.5-8.0); URINE PROTEIN - DIPSTICK NEGATIVE (NEG-TRACE); URINE SPECIFIC GRAVITY >=1.030; URINE UROBILINOGEN - DIPSTICK 0.2 E.U./dL (0.2)
[2021-12-02 11:47] LABS: URINE NITRITE - DIPSTICK NEGATIVE (Negative)
[2021-12-02 11:53] LABS: ALBUMIN 3.6 g/dL (3.2-5.0); ALKALINE PHOSPHATASE 58 u/l (38-126); ANION GAP 11 (6-22 (CALC)); BILIRUBIN, TOTAL 0.3 mg/dL (0.0-1.4); BUN 11 mg/dL (9-20); BUN/CREATININE RATIO 51 (12-20 (CALC)); CARBON DIOXIDE 25 mmol/l (22-30); CHLORIDE 106 mmol/l (95-108); CREATININE 0.2 mg/dL (0.7-1.3); GFR > 60 ML/MIN (>=60 (CALC)); GFR FOR AFR.AMER. > 60 ML/MIN (>=60 (CALC)); POTASSIUM 3.6 mmol/l (3.5-5.1); SGOT/AST 40 u/l (17-59); SODIUM 139 mmol/l (137-146); TOTAL PROTEIN 6.2 g/dL (6.3-8.2)
[2021-12-02] MEDS ORDERED: PERCOCET 5/325M1 TAB PO (12:55)
[2021-12-02] MEDS ORDERED: ONDANSETRON ODT8 MG PO (12:55)
[2021-12-02 13:03] VITALS: BP 129/92
== END 2021-12-02 13:55 | disposition home or self-care (01) ==
LOC: ED 10:13
PROVIDERS: Internal Medicine
DX: N20.0 Calculus of kidney (principal); G71.00 Muscular dystrophy, unspecified; I10 Essential (primary) hypertension; Z94.1 Heart transplant status; Z95.5 Presence of coronary angioplasty implant and graft; Z87.442 Personal history of urinary calculi

== ENCOUNTER 2021-12-31 21:08 | Emergency (ER) | payer MEDICAID ==
[~2021-12-31] VITALS: Ht 165.1 cm; Wt 67.0 kg
[~2021-12-31 21:08] MED LIST changes: +ONDANSETRON ODT8 MG PO; +PERCOCET 5/325M1 TAB PO
[2021-12-31 21:22] VITALS: BP 106/60
[2021-12-31 21:31] VITALS: BP 149/120
[2021-12-31 22:00] VITALS: BP 111/76
[2021-12-31] MEDS ORDERED: NAPROXEN500 MG PO (22:00)
[2021-12-31 23:18] VITALS: BP 111/76
== END 2021-12-31 22:30 | disposition home or self-care (01) ==
LOC: ED 21:08
DX: S43.111A Subluxation of right acromioclavicular joint, initial encounter (principal); G82.20 Paraplegia, unspecified; I10 Essential (primary) hypertension; X50.0XXA Overexertion from strenuous movement or load, initial encounter; Z94.1 Heart transplant status; Z95.5 Presence of coronary angioplasty implant and graft; Z99.3 Dependence on wheelchair

== ENCOUNTER 2022-01-23 09:34 | Emergency (ER) | payer MEDICAID ==
[~2022-01-23] VITALS: Ht 165.1 cm; Wt 67.0 kg
[~2022-01-23 09:34] MED LIST changes: +NAPROXEN500 MG PO
[2022-01-23 10:34] VITALS: BP 107/76
== END 2022-01-23 11:16 | disposition home or self-care (01) ==
LOC: ED 09:34
DX: J02.9 Acute pharyngitis, unspecified (principal); I10 Essential (primary) hypertension; Z94.1 Heart transplant status; Z95.5 Presence of coronary angioplasty implant and graft; Z20.822 Contact with and (suspected) exposure to COVID-19

== ENCOUNTER 2022-02-26 00:03 | Emergency (ER) | payer MEDICAID ==
[~2022-02-26] VITALS: Ht 165.1 cm; Wt 70.0 kg
[2022-02-26 00:11] VITALS: BP 98/66
[2022-02-26 00:56] LABS: HEMATOCRIT 43.8 % (39.0-50.0); HEMOGLOBIN 13.7 g/dl (14.0-18.0); IMMATURE GRANULOCYTES 0.5 % (0.0-5.0); MEAN CELL VOLUME 94.4 fL CALC (80.0-100.0); MEAN CORPUSCULAR HGB 29.5 pG CALC (26.0-32.0); MEAN CORPUSCULAR HGB CONC 31.3 g/dL CAL (32.0-36.0); NEUT# 7.42 thou/uL (1.82-7.42); RED BLOOD COUNT 4.64 mill/uL (4.70-6.10); RED CELL DISTRI WIDTH 14.3 % (11.5-15.5)
[2022-02-26 01:07] LABS: ALBUMIN 3.8 g/dL (3.2-5.0); ALKALINE PHOSPHATASE 57 u/l (38-126); ANION GAP 11 (6-22 (CALC)); BILIRUBIN, TOTAL 0.3 mg/dL (0.0-1.4); BUN 10 mg/dL (9-20); BUN/CREATININE RATIO 30 (12-20 (CALC)); CARBON DIOXIDE 27 mmol/l (22-30); CHLORIDE 103 mmol/l (95-108); CREATININE 0.3 mg/dL (0.7-1.3); GFR FOR AFR.AMER. > 60 ML/MIN (>=60 (CALC)); GFR OTHER RACES > 60 ML/MIN (>=60 (CALC)); SGOT/AST 42 u/l (17-59); SODIUM 136 mmol/l (137-146); TOTAL PROTEIN 6.4 g/dL (6.3-8.2)
[2022-02-26 01:10] LABS: POTASSIUM 4.7 mmol/l (3.5-5.1)
[2022-02-26 01:15] VITALS: BP 104/65
[2022-02-26 01:19] LABS: MYOGLOBIN 110 ng/mL (0 - 121)
[2022-02-26 01:30] VITALS: BP 113/74
[2022-02-26 01:41] VITALS: BP 113/74
== END 2022-02-26 01:41 | disposition home or self-care (01) ==
LOC: ED 00:03
PROVIDERS: Emergency Medicine
DX: R60.0 Localized edema (principal); R51.9 Headache, unspecified; G71.00 Muscular dystrophy, unspecified; I10 Essential (primary) hypertension; Z94.1 Heart transplant status; Z20.822 Contact with and (suspected) exposure to COVID-19

== ENCOUNTER 2022-03-02 10:34 | Emergency (ER) | payer MEDICAID ==
[~2022-03-02] VITALS: Ht 165.1 cm; Wt 70.4 kg
[2022-03-02 11:27] LABS: HEMOGLOBIN 13.8 g/dl (14.0-18.0); IMMATURE GRANULOCYTES 0.6 % (0.0-5.0); MEAN CELL VOLUME 94.2 fL CALC (80.0-100.0); MEAN CORPUSCULAR HGB 29.6 pG CALC (26.0-32.0); MEAN CORPUSCULAR HGB CONC 31.4 g/dL CAL (32.0-36.0); NEUT# 4.56 thou/uL (1.82-7.42); RED BLOOD COUNT 4.67 mill/uL (4.70-6.10); RED CELL DISTRI WIDTH 13.7 % (11.5-15.5)
[2022-03-02 11:27] LABS: URINE BILIRUBIN - DIPSTICK NEGATIVE (NEGATIVE); URINE BLOOD DIPSTICK LARGE (NEGATIVE); URINE COLOR YELLOW; URINE GLUCOSE - DIPSTICK NEGATIVE (NEGATIVE); URINE KETONE 15 mg/dL (NEGATIVE); URINE LEUK ESTERASE NEGATIVE (NEGATIVE); URINE PH 8.5 (4.5-8.0); URINE PROTEIN - DIPSTICK NEGATIVE (NEG-TRACE); URINE SPECIFIC GRAVITY 1.015; URINE UROBILINOGEN - DIPSTICK 0.2 E.U./dL (0.2)
[2022-03-02 11:30] LABS: URINE NITRITE - DIPSTICK NEGATIVE (Negative)
[2022-03-02 11:31] LABS: URINE RBC >100 RBC/hpf (0-5); URINE WBC 0-2 WBC/hpf (0-5)
[2022-03-02 11:38] LABS: ALBUMIN 3.8 g/dL (3.2-5.0); ALKALINE PHOSPHATASE 47 u/l (38-126); ANION GAP 12 (6-22 (CALC)); BUN 10 mg/dL (9-20); CARBON DIOXIDE 26 mmol/l (22-30); CHLORIDE 99 mmol/l (95-108); CREATININE < 0.2 mg/dL (0.7-1.3); GFR FOR AFR.AMER. > 60 ML/MIN (>=60 (CALC)); GFR OTHER RACES > 60 ML/MIN (>=60 (CALC)); LIPASE 24 u/l (23-300); POTASSIUM 4.2 mmol/l (3.5-5.1); SGOT/AST 43 u/l (17-59); SODIUM 134 mmol/l (137-146); TOTAL PROTEIN 6.3 g/dL (6.3-8.2)
[2022-03-02 11:39] LABS: BILIRUBIN, TOTAL 0.6 mg/dL (0.0-1.4)
[2022-03-02] MEDS ORDERED: TAMSULOSIN0.4 MG PO (12:38)
[2022-03-02] MEDS ORDERED: HYDROCO/APAP1 TA9 PO (12:38)
[2022-03-02 12:56] VITALS: BP 115/73
== END 2022-03-02 13:23 | disposition home or self-care (01) ==
LOC: ED 10:34
PROVIDERS: Family Medicine
DX: N20.1 Calculus of ureter (principal); G71.01 Duchenne or Becker muscular dystrophy; I10 Essential (primary) hypertension; Z95.5 Presence of coronary angioplasty implant and graft; Z94.1 Heart transplant status

== ENCOUNTER 2022-03-09 16:26 | Emergency (ER) | payer MEDICAID ==
[~2022-03-09] VITALS: Ht 165.1 cm; Wt 70.5 kg
[2022-03-09 17:38] LABS: HEMATOCRIT 41.3 % (39.0-50.0); HEMOGLOBIN 13.6 g/dl (14.0-18.0); IMMATURE GRANULOCYTES 0.7 % (0.0-5.0); MEAN CELL VOLUME 90.8 fL CALC (80.0-100.0); MEAN CORPUSCULAR HGB 29.9 pG CALC (26.0-32.0); MEAN CORPUSCULAR HGB CONC 32.9 g/dL CAL (32.0-36.0); NEUT# 6.47 thou/uL (1.82-7.42); RED BLOOD COUNT 4.55 mill/uL (4.70-6.10); RED CELL DISTRI WIDTH 13.8 % (11.5-15.5)
[2022-03-09 17:40] LABS: ALKALINE PHOSPHATASE 50 u/l (38-126); BUN 12 mg/dL (9-20); BUN/CREATININE RATIO 53 (12-20 (CALC)); CARBON DIOXIDE 23 mmol/l (22-30); CHLORIDE 105 mmol/l (95-108); CREATININE 0.2 mg/dL (0.7-1.3); GFR FOR AFR.AMER. > 60 ML/MIN (>=60 (CALC)); GFR OTHER RACES > 60 ML/MIN (>=60 (CALC)); SGOT/AST 50 u/l (17-59); SODIUM 138 mmol/l (137-146); TOTAL PROTEIN 6.4 g/dL (6.3-8.2)
[2022-03-09 17:57] LABS: ANION GAP 13 (6-22 (CALC)); BILIRUBIN, TOTAL 0.3 mg/dL (0.0-1.4); POTASSIUM 3.3 mmol/l (3.5-5.1)
[2022-03-09 18:32] LABS: URINE BLOOD DIPSTICK LARGE (NEGATIVE); URINE COLOR BROWN; URINE GLUCOSE - DIPSTICK NEGATIVE (NEGATIVE); URINE KETONE NEGATIVE (NEGATIVE); URINE LEUK ESTERASE TRACE (NEGATIVE); URINE PROTEIN - DIPSTICK 100 mg/dL (NEG-TRACE); URINE SPECIFIC GRAVITY >=1.030
[2022-03-09 18:44] LABS: URINE BILIRUBIN - DIPSTICK NEGATIVE (NEGATIVE); URINE NITRITE - DIPSTICK POSITIVE (Negative)
[2022-03-09 18:45] LABS: URINE RBC TNTC RBC/hpf (0-5)
[2022-03-09 21:30] VITALS: BP 104/73
[2022-03-09 22:01] VITALS: BP 80/55
[2022-03-09 22:30] VITALS: BP 83/52
[2022-03-09 23:00] VITALS: BP 91/51
== END 2022-03-09 23:30 | disposition short-term general hospital (02) ==
LOC: ED 16:26
PROVIDERS: Family Medicine
DX: N13.6 Pyonephrosis (principal); G71.01 Duchenne or Becker muscular dystrophy; I10 Essential (primary) hypertension; Z94.1 Heart transplant status; Z95.5 Presence of coronary angioplasty implant and graft; Z20.822 Contact with and (suspected) exposure to COVID-19

== ENCOUNTER 2022-03-14 13:57 | Emergency (ER) | payer MEDICAID ==
[~2022-03-14] VITALS: Ht 165.1 cm; Wt 70.5 kg
[2022-03-14 16:12] LABS: HEMATOCRIT 37.7 % (39.0-50.0); HEMOGLOBIN 11.9 g/dl (14.0-18.0); IMMATURE GRANULOCYTES 0.6 % (0.0-5.0); MEAN CELL VOLUME 94.5 fL CALC (80.0-100.0); MEAN CORPUSCULAR HGB 29.8 pG CALC (26.0-32.0); MEAN CORPUSCULAR HGB CONC 31.6 g/dL CAL (32.0-36.0); NEUT# 5.45 thou/uL (1.82-7.42); RED BLOOD COUNT 3.99 mill/uL (4.70-6.10); RED CELL DISTRI WIDTH 13.9 % (11.5-15.5)
[2022-03-14 16:32] LABS: ALBUMIN 3.5 g/dL (3.2-5.0); ALKALINE PHOSPHATASE 41 u/l (38-126); ANION GAP 9 (6-22 (CALC)); BILIRUBIN, TOTAL 0.2 mg/dL (0.0-1.4); BUN 10 mg/dL (9-20); BUN/CREATININE RATIO 34 (12-20 (CALC)); CHLORIDE 101 mmol/l (95-108); CREATININE 0.3 mg/dL (0.7-1.3); GFR FOR AFR.AMER. > 60 ML/MIN (>=60 (CALC)); GFR OTHER RACES > 60 ML/MIN (>=60 (CALC)); POTASSIUM 3.8 mmol/l (3.5-5.1); SGOT/AST 64 u/l (17-59); SODIUM 135 mmol/l (137-146); TOTAL PROTEIN 5.8 g/dL (6.3-8.2)
[2022-03-14 16:39] LABS: CARBON DIOXIDE 29 mmol/l (22-30)
[2022-03-14] MEDS ORDERED: PAXLOVID PO (16:49)
[2022-03-14 16:54] VITALS: BP 135/51
== END 2022-03-14 17:35 | disposition home or self-care (01) ==
LOC: ED 13:57
PROVIDERS: Nurse Practitioner
DX: U07.1 COVID-19 (principal); R52 Pain, unspecified; R51.9 Headache, unspecified; R05.9 Cough, unspecified; K21.9 Gastro-esophageal reflux disease without esophagitis; G71.01 Duchenne or Becker muscular dystrophy; I25.10 Atherosclerotic heart disease of native coronary artery without angina pectoris; Z94.1 Heart transplant status; Z95.5 Presence of coronary angioplasty implant and graft; Z96.0 Presence of urogenital implants; G71.00 Muscular dystrophy, unspecified; E86.0 Dehydration

== ENCOUNTER 2022-03-24 07:53 | Emergency (ER) | payer MEDICAID ==
[2022-03-24] VITALS (9 sets, daily range): BP systolic 97–114; BP diastolic 66–83
[~2022-03-24] VITALS: Ht 165.1 cm; Wt 70.3 kg
[~2022-03-24 07:53] MED LIST changes: +PAXLOVID PO
[2022-03-24 08:26] LABS: HEMATOCRIT 40.3 % (39.0-50.0); HEMOGLOBIN 12.6 g/dl (14.0-18.0); IMMATURE GRANULOCYTES 0.5 % (0.0-5.0); MEAN CELL VOLUME 95.7 fL CALC (80.0-100.0); MEAN CORPUSCULAR HGB 29.9 pG CALC (26.0-32.0); MEAN CORPUSCULAR HGB CONC 31.3 g/dL CAL (32.0-36.0); NEUT# 8.38 thou/uL (1.82-7.42); RED BLOOD COUNT 4.21 mill/uL (4.70-6.10); RED CELL DISTRI WIDTH 14.1 % (11.5-15.5)
[2022-03-24 08:39] LABS: ALBUMIN 3.7 g/dL (3.2-5.0); ANION GAP 9 (6-22 (CALC)); BUN 28 mg/dL (9-20); BUN/CREATININE RATIO 64 (12-20 (CALC)); CARBON DIOXIDE 26 mmol/l (22-30); CHLORIDE 106 mmol/l (95-108); CREATININE 0.4 mg/dL (0.7-1.3); GFR FOR AFR.AMER. > 60 ML/MIN (>=60 (CALC)); GFR OTHER RACES > 60 ML/MIN (>=60 (CALC)); LIPASE 48 u/l (23-300); SGOT/AST 54 u/l (17-59); SODIUM 136 mmol/l (137-146); TOTAL PROTEIN 6.2 g/dL (6.3-8.2)
[2022-03-24 08:40] LABS: ALKALINE PHOSPHATASE 70 u/l (38-126); BILIRUBIN, TOTAL 0.3 mg/dL (0.0-1.4)
[2022-03-24 08:43] LABS: URINE BILIRUBIN - DIPSTICK NEGATIVE (NEGATIVE); URINE BLOOD DIPSTICK MODERATE (NEGATIVE); URINE COLOR YELLOW; URINE GLUCOSE - DIPSTICK NEGATIVE (NEGATIVE); URINE KETONE NEGATIVE (NEGATIVE); URINE LEUK ESTERASE NEGATIVE (NEGATIVE); URINE UROBILINOGEN - DIPSTICK 0.2 E.U./dL (0.2)
[2022-03-24 08:50] LABS: URINE NITRITE - DIPSTICK NEGATIVE (Negative)
[2022-03-24 08:51] LABS: URINE PROTEIN - DIPSTICK NEGATIVE (NEG-TRACE)
[2022-03-24 09:01] LABS: URINE EPITHELIAL CELLS RARE EPI/hpf (0-FEW); URINE WBC 0-2 WBC/hpf (0-5)
[2022-03-24] MEDS ORDERED: ATIVAN1 MG PO (11:25)
== END 2022-03-24 12:04 | disposition home or self-care (01) ==
LOC: ED 07:53
PROVIDERS: Internal Medicine
DX: R25.2 Cramp and spasm (principal); I10 Essential (primary) hypertension; G71.01 Duchenne or Becker muscular dystrophy; Z94.1 Heart transplant status; Z95.5 Presence of coronary angioplasty implant and graft; G71.00 Muscular dystrophy, unspecified

== ENCOUNTER 2022-06-30 09:45 | Emergency (ER) | payer MEDICAID ==
[~2022-06-30] VITALS: Ht 165.1 cm; Wt 69.0 kg
[~2022-06-30 09:45] MED LIST changes: +ATIVAN1 MG PO
[2022-06-30] MEDS ORDERED: AMOXICILLIN500 MG PO (11:27)
[2022-06-30] MEDS ORDERED: TESSALON PERLE100 MG PO (11:27)
[2022-06-30 11:34] VITALS: BP 115/70
== END 2022-06-30 11:43 | disposition home or self-care (01) ==
LOC: ED 09:45
DX: J20.9 Acute bronchitis, unspecified (principal); I10 Essential (primary) hypertension; G71.00 Muscular dystrophy, unspecified; Z94.1 Heart transplant status; Z95.5 Presence of coronary angioplasty implant and graft; Z20.822 Contact with and (suspected) exposure to COVID-19; Z45.2 Encounter for adjustment and management of vascular access device

== ENCOUNTER 2022-07-21 21:10 | Emergency (ER) | payer MEDICAID ==
[~2022-07-21] VITALS: Ht 165.1 cm; Wt 72.7 kg
[~2022-07-21 21:10] MED LIST changes: +TESSALON PERLE100 MG PO
[2022-07-21 22:00] VITALS: BP 128/86
[2022-07-21 22:15] VITALS: BP 128/83
[2022-07-21 22:31] VITALS: BP 90/50
[2022-07-21] MEDS ORDERED: BACTRIM DS1 TAB PO (22:43)
[2022-07-21 22:45] VITALS: BP 89/62
[2022-07-21 22:47] VITALS: BP 113/62
== END 2022-07-21 23:01 | disposition home or self-care (01) ==
LOC: ED 21:10
DX: N49.2 Inflammatory disorders of scrotum (principal); H61.21 Impacted cerumen, right ear; I10 Essential (primary) hypertension; Z94.1 Heart transplant status; Z95.5 Presence of coronary angioplasty implant and graft; G71.00 Muscular dystrophy, unspecified; Z45.2 Encounter for adjustment and management of vascular access device

== ENCOUNTER 2022-07-25 09:31 | Emergency (ER) | payer MEDICAID ==
[~2022-07-25] VITALS: Ht 165.1 cm; Wt 70.0 kg
[2022-07-25 10:50] VITALS: BP 112/66
[2022-07-25] MEDS ORDERED: MUPIROCIN21 TOP (10:51)
== END 2022-07-25 11:00 | disposition home or self-care (01) ==
LOC: ED 09:31
DX: Z48.01 Encounter for change or removal of surgical wound dressing (principal); I10 Essential (primary) hypertension; Z94.1 Heart transplant status; Z95.5 Presence of coronary angioplasty implant and graft

== ENCOUNTER 2022-08-26 10:42 | Emergency (ER) | payer MEDICAID ==
[2022-08-26] VITALS (10 sets, daily range): BP systolic 120–141; BP diastolic 73–90
[~2022-08-26] VITALS: Ht 165.1 cm; Wt 75.0 kg
[~2022-08-26 10:42] MED LIST changes: +MUPIROCIN21 TOP
[2022-08-26 11:35] LABS: URINE BILIRUBIN - DIPSTICK NEGATIVE (NEGATIVE); URINE BLOOD DIPSTICK NEGATIVE (NEGATIVE); URINE COLOR YELLOW; URINE GLUCOSE - DIPSTICK NEGATIVE (NEGATIVE); URINE KETONE NEGATIVE (NEGATIVE); URINE LEUK ESTERASE NEGATIVE (NEGATIVE); URINE PH 5.5 (4.5-8.0); URINE PROTEIN - DIPSTICK TRACE mg/dL (NEG-TRACE); URINE SPECIFIC GRAVITY >=1.030; URINE UROBILINOGEN - DIPSTICK 0.2 E.U./dL (0.2)
[2022-08-26 11:36] LABS: EOS% 0.1 % (0-8); HEMATOCRIT 38.8 % (39.0-50.0); HEMOGLOBIN 12.5 g/dl (14.0-18.0); IMMATURE GRANULOCYTES 2.1 % (0.0-5.0); LYMPH% 7.7 % (15-41); MEAN CELL VOLUME 90.2 fL CALC (80.0-100.0); MEAN CORPUSCULAR HGB 29.1 pG CALC (26.0-32.0); MEAN CORPUSCULAR HGB CONC 32.2 g/dL CAL (32.0-36.0); MONO% 11.8 % (2-13); NEUT# 6.69 thou/uL (1.82-7.42); NEUT% 78.3 % (42-76); RED BLOOD COUNT 4.3 mill/uL (4.70-6.10); RED CELL DISTRI WIDTH 14.7 % (11.5-15.5)
[2022-08-26 11:36] LABS: URINE NITRITE - DIPSTICK NEGATIVE (Negative)
[2022-08-26 11:54] LABS: ALBUMIN 3.5 g/dL (3.2-5.0); ALKALINE PHOSPHATASE 54 u/l (38-126); ANION GAP 11 (6-22 (CALC)); BILIRUBIN, TOTAL 0.3 mg/dL (0.0-1.4); BUN 15 mg/dL (9-20); BUN/CREATININE RATIO 71 (12-20 (CALC)); CARBON DIOXIDE 24 mmol/l (22-30); CHLORIDE 105 mmol/l (95-108); CREATININE 0.2 mg/dL (0.7-1.3); GFR FOR AFR.AMER. > 60 ML/MIN (>=60 (CALC)); GFR OTHER RACES > 60 ML/MIN (>=60 (CALC)); LIPASE 109 u/l (23-300); SGOT/AST 50 u/l (17-59); SODIUM 136 mmol/l (137-146); TOTAL PROTEIN 5.9 g/dL (6.3-8.2)
[2022-08-26] MEDS ORDERED: DIAZEPAM5 MG PO (15:28)
== END 2022-08-26 16:36 | disposition home or self-care (01) ==
LOC: ED 10:42
PROVIDERS: Family Medicine
DX: M54.50 Low back pain, unspecified (principal); I10 Essential (primary) hypertension; G71.01 Duchenne or Becker muscular dystrophy; Z87.442 Personal history of urinary calculi; Z94.1 Heart transplant status; Z95.5 Presence of coronary angioplasty implant and graft; G71.00 Muscular dystrophy, unspecified

== ENCOUNTER 2022-10-27 21:32 | Emergency (ER) | payer MEDICAID ==
[~2022-10-27] VITALS: Ht 165.1 cm; Wt 75.0 kg
[~2022-10-27 21:32] MED LIST changes: +DIAZEPAM5 MG PO
[2022-10-27 22:18] LABS: HEMOGLOBIN 14.1 g/dl (14.0-18.0); IMMATURE GRANULOCYTES 1.1 % (0.0-5.0); LYMPH% 5.1 % (15-41); MEAN CELL VOLUME 90.6 fL CALC (80.0-100.0); MEAN CORPUSCULAR HGB 28.1 pG CALC (26.0-32.0); MEAN CORPUSCULAR HGB CONC 31.1 g/dL CAL (32.0-36.0); MONO% 4.3 % (2-13); NEUT# 11.27 thou/uL (1.82-7.42); NEUT% 89.5 % (42-76); RED BLOOD COUNT 5.01 mill/uL (4.70-6.10)
[2022-10-27 22:20] LABS: HEMATOCRIT 45.4 % (39.0-50.0)
[2022-10-27 22:31] LABS: ALBUMIN 4.2 g/dL (3.2-5.0); ALKALINE PHOSPHATASE 42 u/l (38-126); ANION GAP 17 (6-22 (CALC)); BILIRUBIN, TOTAL 0.5 mg/dL (0.2-1.3); BUN 10 mg/dL (9-20); BUN/CREATININE RATIO 56 (12-20 (CALC)); CARBON DIOXIDE 20 mmol/l (22-30); CHLORIDE 102 mmol/l (95-108); CREATININE 0.2 mg/dL (0.7-1.3); GFR FOR AFR.AMER. > 60 ML/MIN (>=60 (CALC)); GFR OTHER RACES > 60 ML/MIN (>=60 (CALC)); POTASSIUM 4.3 mmol/l (3.5-5.1); SGOT/AST 64 u/l (17-59); SODIUM 136 mmol/l (137-146); TOTAL PROTEIN 6.5 g/dL (6.3-8.2)
[2022-10-27 22:37] LABS: ACT PARTIAL THROMBO TIME 22.7 SECONDS (20.0-32.5); INTERNATIONAL NORMALIZED RATIO 1.1 RATIO (0.7-1.3); PROTHROMBIN TIME 10.6 SECONDS (9.0-12.5)
[2022-10-27 22:41] LABS: D-DIMER 0.33 mg/L (0.19-0.60)
[2022-10-27] MEDS ORDERED: TRAMADOL HCL50 MG PO (23:22)
[2022-10-27 23:25] VITALS: BP 83/44
== END 2022-10-27 23:34 | disposition home or self-care (01) ==
LOC: ED 21:32
PROVIDERS: Family Medicine
DX: R07.89 Other chest pain (principal); I10 Essential (primary) hypertension; E11.9 Type 2 diabetes mellitus without complications; Z94.1 Heart transplant status; Z95.5 Presence of coronary angioplasty implant and graft

== ENCOUNTER 2022-11-21 16:12 | Emergency (ER) | payer MEDICAID ==
[~2022-11-21] VITALS: Ht 165.1 cm; Wt 78.5 kg
[~2022-11-21 16:12] MED LIST changes: +TRAMADOL HCL50 MG PO
[2022-11-21 16:58] LABS: URINE BLOOD DIPSTICK LARGE (NEGATIVE); URINE GLUCOSE - DIPSTICK NEGATIVE (NEGATIVE); URINE KETONE TRACE mg/dL (NEGATIVE); URINE LEUK ESTERASE NEGATIVE (NEGATIVE); URINE PROTEIN - DIPSTICK 30 mg/dL (NEG-TRACE); URINE SPECIFIC GRAVITY >=1.030; URINE UROBILINOGEN - DIPSTICK 0.2 E.U./dL (0.2)
[2022-11-21 17:03] LABS: URINE BILIRUBIN - DIPSTICK SMALL (NEGATIVE); URINE COLOR DK. YELLOW; URINE NITRITE - DIPSTICK NEGATIVE (Negative)
[2022-11-21] MEDS ORDERED: KLOR-CON M1010 MEQ PO (17:07)
[2022-11-21 17:11] LABS: URINE WBC 0-2 WBC/hpf (0-5)
[2022-11-21 17:29] LABS: BASO% 0.3 % (0-3); EOS% 0.7 % (0-8); HEMATOCRIT 44.5 % (39.0-50.0); HEMOGLOBIN 13.9 g/dl (14.0-18.0); IMMATURE GRANULOCYTES 0.2 % (0.0-5.0); MEAN CELL VOLUME 89.9 fL CALC (80.0-100.0); MEAN CORPUSCULAR HGB 28.1 pG CALC (26.0-32.0); MEAN CORPUSCULAR HGB CONC 31.2 g/dL CAL (32.0-36.0); MONO% 12.5 % (2-13); NEUT# 6.1 thou/uL (1.82-7.42); NEUT% 66.3 % (42-76); RED BLOOD COUNT 4.95 mill/uL (4.70-6.10); RED CELL DISTRI WIDTH 14.1 % (11.5-15.5)
[2022-11-21] MEDS ORDERED: TAMSULOSIN0.4 MG PO (17:41)
[2022-11-21] MEDS ORDERED: HYDROCO/APAP1 TA9 PO (17:41)
[2022-11-21 17:42] LABS: ALKALINE PHOSPHATASE 52 u/l (38-126); ANION GAP 11 (6-22 (CALC)); BILIRUBIN, TOTAL 0.7 mg/dL (0.2-1.3); BUN 20 mg/dL (9-20); BUN/CREATININE RATIO 36 (12-20 (CALC)); CHLORIDE 103 mmol/l (95-108); CREATININE 0.5 mg/dL (0.7-1.3); GFR FOR AFR.AMER. > 60 ML/MIN (>=60 (CALC)); GFR OTHER RACES > 60 ML/MIN (>=60 (CALC)); POTASSIUM 3.8 mmol/l (3.5-5.1); SGOT/AST 58 u/l (17-59); SODIUM 138 mmol/l (137-146); TOTAL PROTEIN 6.4 g/dL (6.3-8.2)
[2022-11-21 17:46] LABS: CARBON DIOXIDE 28 mmol/l (22-30)
[2022-11-21 17:51] VITALS: BP 104/87
[2022-11-21] MEDS ORDERED: HYDROCO/APAP1 T10 PO (18:41)
[2022-11-21] MEDS ORDERED: OXYCODONE5 M1 PO (18:58)
== END 2022-11-21 18:24 | disposition home or self-care (01) ==
LOC: ED 16:12
PROVIDERS: Family Medicine
DX: R31.9 Hematuria, unspecified (principal); R35.0 Frequency of micturition; R10.9 Unspecified abdominal pain; G71.01 Duchenne or Becker muscular dystrophy; I10 Essential (primary) hypertension; Z94.1 Heart transplant status; Z95.5 Presence of coronary angioplasty implant and graft

== ENCOUNTER 2022-11-24 18:29 | Emergency (ER) | payer MEDICAID ==
[~2022-11-24] VITALS: Ht 165.1 cm; Wt 78.5 kg
[~2022-11-24 18:29] MED LIST changes: +HYDROCO/APAP1 T10 PO; +KLOR-CON M1010 MEQ PO; +OXYCODONE5 M1 PO
[2022-11-24 19:50] LABS: URINE BILIRUBIN - DIPSTICK NEGATIVE (NEGATIVE); URINE BLOOD DIPSTICK NEGATIVE (NEGATIVE); URINE COLOR YELLOW; URINE GLUCOSE - DIPSTICK NEGATIVE (NEGATIVE); URINE KETONE NEGATIVE (NEGATIVE); URINE LEUK ESTERASE NEGATIVE (NEGATIVE); URINE PH 6.5 (4.5-8.0); URINE PROTEIN - DIPSTICK NEGATIVE (NEG-TRACE); URINE UROBILINOGEN - DIPSTICK 0.2 E.U./dL (0.2)
[2022-11-24 19:58] LABS: URINE NITRITE - DIPSTICK NEGATIVE (Negative)
[2022-11-24 20:56] LABS: BASO% 0.1 % (0-3); EOS% 0.7 % (0-8); HEMATOCRIT 43.8 % (39.0-50.0); HEMOGLOBIN 13.7 g/dl (14.0-18.0); IMMATURE GRANULOCYTES 0.3 % (0.0-5.0); MEAN CELL VOLUME 89.8 fL CALC (80.0-100.0); MEAN CORPUSCULAR HGB 28.1 pG CALC (26.0-32.0); MEAN CORPUSCULAR HGB CONC 31.3 g/dL CAL (32.0-36.0); MONO% 16.9 % (2-13); NEUT# 4.12 thou/uL (1.82-7.42); RED BLOOD COUNT 4.88 mill/uL (4.70-6.10); RED CELL DISTRI WIDTH 13.8 % (11.5-15.5)
[2022-11-24 21:12] LABS: ALBUMIN 4.2 g/dL (3.2-5.0); ALKALINE PHOSPHATASE 56 u/l (38-126); ANION GAP 13 (6-22 (CALC)); BILIRUBIN, TOTAL 0.7 mg/dL (0.2-1.3); BUN 10 mg/dL (9-20); BUN/CREATININE RATIO 43 (12-20 (CALC)); CARBON DIOXIDE 25 mmol/l (22-30); CHLORIDE 101 mmol/l (95-108); CREATININE 0.2 mg/dL (0.7-1.3); GFR FOR AFR.AMER. > 60 ML/MIN (>=60 (CALC)); GFR OTHER RACES > 60 ML/MIN (>=60 (CALC)); POTASSIUM 3.7 mmol/l (3.5-5.1); SODIUM 135 mmol/l (137-146); TOTAL PROTEIN 7.2 g/dL (6.3-8.2)
[2022-11-24 21:20] LABS: SGOT/AST 103 u/l (17-59)
[2022-11-25 00:23] VITALS: BP 107/57
== END 2022-11-25 00:28 | disposition home or self-care (01) ==
LOC: ED 18:29
PROVIDERS: Nurse Practitioner
DX: L27.1 Localized skin eruption due to drugs and medicaments taken internally (principal); T50.Z15A Adverse effect of immunoglobulin, initial encounter; R79.89 Other specified abnormal findings of blood chemistry; G71.01 Duchenne or Becker muscular dystrophy; I10 Essential (primary) hypertension; Z94.1 Heart transplant status; Z95.5 Presence of coronary angioplasty implant and graft; Z20.822 Contact with and (suspected) exposure to COVID-19

== ENCOUNTER 2022-12-11 03:34 | Emergency (ER) | payer MEDICAID ==
[2022-12-11] VITALS (11 sets, daily range): BP systolic 112–133; BP diastolic 70–91
[~2022-12-11] VITALS: Ht 165.1 cm; Wt 78.0 kg
[2022-12-11 04:48] LABS: BASO% 0.1 % (0-3); EOS% 0.1 % (0-8); HEMATOCRIT 40.3 % (39.0-50.0); HEMOGLOBIN 12.5 g/dl (14.0-18.0); IMMATURE GRANULOCYTES 1.1 % (0.0-5.0); LYMPH% 10.4 % (15-41); MEAN CELL VOLUME 89.4 fL CALC (80.0-100.0); MEAN CORPUSCULAR HGB 27.7 pG CALC (26.0-32.0); MONO% 7.9 % (2-13); NEUT# 6.61 thou/uL (1.82-7.42); NEUT% 80.4 % (42-76); RED BLOOD COUNT 4.51 mill/uL (4.70-6.10); RED CELL DISTRI WIDTH 13.6 % (11.5-15.5)
[2022-12-11 04:53] LABS: ALBUMIN 3.7 g/dL (3.2-5.0); ALKALINE PHOSPHATASE 49 u/l (38-126); ANION GAP 8 (6-22 (CALC)); BUN 15 mg/dL (9-20); BUN/CREATININE RATIO 55 (12-20 (CALC)); CARBON DIOXIDE 27 mmol/l (22-30); CHLORIDE 106 mmol/l (95-108); CREATININE 0.3 mg/dL (0.7-1.3); GFR FOR AFR.AMER. > 60 ML/MIN (>=60 (CALC)); GFR OTHER RACES > 60 ML/MIN (>=60 (CALC)); POTASSIUM 3.8 mmol/l (3.5-5.1); SGOT/AST 67 u/l (17-59); SODIUM 137 mmol/l (137-146); TOTAL PROTEIN 6.2 g/dL (6.3-8.2)
[2022-12-11 04:54] LABS: BILIRUBIN, TOTAL 0.1 mg/dL (0.2-1.3)
[2022-12-11 04:54] LABS: URINE BILIRUBIN - DIPSTICK NEGATIVE (NEGATIVE); URINE BLOOD DIPSTICK NEGATIVE (NEGATIVE); URINE COLOR YELLOW; URINE GLUCOSE - DIPSTICK NEGATIVE (NEGATIVE); URINE KETONE NEGATIVE (NEGATIVE); URINE LEUK ESTERASE NEGATIVE (NEGATIVE); URINE PH 5.5 (4.5-8.0); URINE PROTEIN - DIPSTICK NEGATIVE (NEG-TRACE); URINE SPECIFIC GRAVITY 1.025; URINE UROBILINOGEN - DIPSTICK 0.2 E.U./dL (0.2)
[2022-12-11 04:56] LABS: D-DIMER 0.42 mg/L (0.19-0.60)
[2022-12-11 04:56] LABS: URINE NITRITE - DIPSTICK NEGATIVE (Negative)
[2022-12-11 04:59] LABS: ACT PARTIAL THROMBO TIME 26.1 SECONDS (20.0-32.5); INTERNATIONAL NORMALIZED RATIO 1.1 RATIO (0.7-1.3); PROTHROMBIN TIME 10.5 SECONDS (9.0-12.5)
== END 2022-12-11 06:34 | disposition home or self-care (01) ==
LOC: ED 03:34
PROVIDERS: Family Medicine
DX: M79.89 Other specified soft tissue disorders (principal); I10 Essential (primary) hypertension; Z99.3 Dependence on wheelchair

== ENCOUNTER 2022-12-30 23:07 | Emergency (ER) | payer MEDICAID ==
[~2022-12-30] VITALS: Ht 165.1 cm; Wt 78.0 kg
[2022-12-30 23:21] VITALS: BP 117/81
[2022-12-30 23:30] VITALS: BP 117/80
[2022-12-30 23:43] LABS: URINE BILIRUBIN - DIPSTICK NEGATIVE (NEGATIVE); URINE BLOOD DIPSTICK NEGATIVE (NEGATIVE); URINE COLOR YELLOW; URINE GLUCOSE - DIPSTICK NEGATIVE (NEGATIVE); URINE KETONE NEGATIVE (NEGATIVE); URINE LEUK ESTERASE NEGATIVE (NEGATIVE); URINE PH 5.5 (4.5-8.0); URINE PROTEIN - DIPSTICK NEGATIVE (NEG-TRACE); URINE UROBILINOGEN - DIPSTICK 0.2 E.U./dL (0.2)
[2022-12-30 23:45] VITALS: BP 110/72
[2022-12-30 23:51] LABS: URINE NITRITE - DIPSTICK NEGATIVE (Negative)
[2022-12-31] VITALS (15 sets, daily range): BP systolic 84–110; BP diastolic 48–72
[2022-12-31 00:37] LABS: BASO% 0.1 % (0-3); EOS% 0.2 % (0-8); HEMATOCRIT 42.8 % (39.0-50.0); HEMOGLOBIN 13.6 g/dl (14.0-18.0); IMMATURE GRANULOCYTES 0.3 % (0.0-5.0); LYMPH% 20.2 % (15-41); MEAN CELL VOLUME 88.4 fL CALC (80.0-100.0); MEAN CORPUSCULAR HGB 28.1 pG CALC (26.0-32.0); MEAN CORPUSCULAR HGB CONC 31.8 g/dL CAL (32.0-36.0); MONO% 13.6 % (2-13); NEUT# 5.91 thou/uL (1.82-7.42); NEUT% 65.6 % (42-76); RED BLOOD COUNT 4.84 mill/uL (4.70-6.10); RED CELL DISTRI WIDTH 13.8 % (11.5-15.5)
[2022-12-31 00:48] LABS: ALBUMIN 3.8 g/dL (3.2-5.0); ALKALINE PHOSPHATASE 50 u/l (38-126); ANION GAP 11 (6-22 (CALC)); BILIRUBIN, TOTAL 0.3 mg/dL (0.2-1.3); BUN 12 mg/dL (9-20); BUN/CREATININE RATIO 37 (12-20 (CALC)); CARBON DIOXIDE 29 mmol/l (22-30); CHLORIDE 103 mmol/l (95-108); CREATININE 0.3 mg/dL (0.7-1.3); GFR FOR AFR.AMER. > 60 ML/MIN (>=60 (CALC)); GFR OTHER RACES > 60 ML/MIN (>=60 (CALC)); SGOT/AST 95 u/l (17-59); SODIUM 139 mmol/l (137-146); TOTAL PROTEIN 6.9 g/dL (6.3-8.2)
[2022-12-31] MEDS ORDERED: FIORICET PO ×2 (02:50→03:28)
== END 2022-12-31 03:35 | disposition home or self-care (01) ==
LOC: ED 23:07
PROVIDERS: Emergency Medicine
DX: R07.89 Other chest pain (principal); R51.9 Headache, unspecified; I10 Essential (primary) hypertension; Z94.1 Heart transplant status

== ENCOUNTER 2023-03-19 15:31 | Emergency (ER) | payer MEDICAID ==
[~2023-03-19] VITALS: Ht 165.1 cm; Wt 76.7 kg
[2023-03-19] VITALS (16 sets, daily range): BP systolic 94–115; BP diastolic 45–83
[~2023-03-19 15:31] MED LIST changes: +FIORICET PO
[2023-03-19 16:13] LABS: BASO% 0.1 % (0-3); EOS% 0.2 % (0-8); HEMATOCRIT 41.1 % (39.0-50.0); HEMOGLOBIN 12.5 g/dl (14.0-18.0); IMMATURE GRANULOCYTES 0.2 % (0.0-5.0); LYMPH% 15.3 % (15-41); MEAN CELL VOLUME 90.9 fL CALC (80.0-100.0); MEAN CORPUSCULAR HGB 27.7 pG CALC (26.0-32.0); MEAN CORPUSCULAR HGB CONC 30.4 g/dL CAL (32.0-36.0); MONO% 12.1 % (2-13); NEUT# 5.79 thou/uL (1.82-7.42); NEUT% 72.1 % (42-76); RED BLOOD COUNT 4.52 mill/uL (4.70-6.10); RED CELL DISTRI WIDTH 14.4 % (11.5-15.5)
[2023-03-19 16:26] LABS: ALBUMIN 3.6 g/dL (3.2-5.0); ALKALINE PHOSPHATASE 46 u/l (38-126); ANION GAP 11 (6-22 (CALC)); BILIRUBIN, TOTAL 0.4 mg/dL (0.2-1.3); BUN 11 mg/dL (9-20); BUN/CREATININE RATIO 39 (12-20 (CALC)); CARBON DIOXIDE 23 mmol/l (22-30); CHLORIDE 107 mmol/l (95-108); CREATININE 0.3 mg/dL (0.7-1.3); GFR FOR AFR.AMER. > 60 ML/MIN (>=60 (CALC)); GFR OTHER RACES > 60 ML/MIN (>=60 (CALC)); POTASSIUM 3.5 mmol/l (3.5-5.1); SGOT/AST 63 u/l (17-59); SODIUM 137 mmol/l (137-146); TOTAL PROTEIN 6.3 g/dL (6.3-8.2)
[2023-03-19] MEDS ORDERED: MEDDOSEPAK PO (20:29)
== END 2023-03-19 21:10 | disposition home or self-care (01) ==
LOC: ED 15:31
PROVIDERS: Family Medicine
DX: R07.89 Other chest pain (principal); I10 Essential (primary) hypertension; Z95.5 Presence of coronary angioplasty implant and graft; Z94.1 Heart transplant status

== ENCOUNTER 2024-09-21 17:05 | Emergency (ER) | payer OTHER ==
[~2024-09-21] VITALS: Ht 167.6 cm; Wt 82.0 kg
[~2024-09-21 17:05] MED LIST changes: +MEDDOSEPAK PO; +NEXIUM40 M1 PO; +PENICILLN VK500 MG PO; +TYLENOL500 MG PO; +[UNRECOGNIZED DRUG - OTHER] PO
[2024-09-21 17:12] VITALS: BP 116/82
[2024-09-21] MEDS ORDERED: HEPARIN SODIUM FLUSH (PORCINE) 100 UNITS/ML 3 ML SYR IV ONE (20:20)
[2024-09-21 20:34] LABS: BASO% 0.2 % (0-3); EOS% 0.1 % (0-8); HEMATOCRIT 42.4 % (39.0-50.0); HEMOGLOBIN 13.4 g/dl (14.0-18.0); IMMATURE GRANULOCYTES 0.3 % (0.0-5.0); LYMPH% 5.9 % (15-41); MEAN CELL VOLUME 90.8 fL CALC (80.0-100.0); MEAN CORPUSCULAR HGB 28.7 pG CALC (26.0-32.0); MEAN CORPUSCULAR HGB CONC 31.6 g/dL CAL (32.0-36.0); MONO% 3.5 % (2-13); NEUT# 9.91 thou/uL (1.82-7.42); RED BLOOD COUNT 4.67 mill/uL (4.70-6.10); RED CELL DISTRI WIDTH 14.5 % (11.5-15.5)
[2024-09-21 20:45] LABS: ALBUMIN 3.6 g/dL (3.2-5.0); BILIRUBIN, TOTAL 0.6 mg/dL (0.2-1.3); CREATININE 0.2 mg/dL (0.7-1.3); POTASSIUM 4.6 mmol/l (3.5-5.1); TOTAL PROTEIN 6.4 g/dL (6.3-8.2)
[2024-09-21 21:10] LABS: URINE BILIRUBIN - DIPSTICK Negative (NEGATIVE); URINE BLOOD DIPSTICK Negative (NEGATIVE); URINE COLOR Yellow; URINE GLUCOSE - DIPSTICK Negative (NEGATIVE); URINE KETONE 15 mg/dL (NEGATIVE); URINE LEUK ESTERASE Negative (NEGATIVE); URINE NITRITE - DIPSTICK Negative (Negative); URINE PROTEIN - DIPSTICK Negative (NEG-TRACE); URINE UROBILINOGEN - DIPSTICK 0.2 E.U./dL (0.2)
[2024-09-21] MEDS ORDERED: ZITHROMAX TRI-500 MG PO (21:18)
[2024-09-21] MEDS ORDERED: AZITHROMYCIN 250 MG/TAB PO ONE (21:20)
[2024-09-21 21:40] VITALS: BP 116/82
== END 2024-09-21 21:40 | disposition home or self-care (01) ==
LOC: ED 17:05
PROVIDERS: Clinical Nurse Specialist Emergency
DX: J40 Bronchitis, not specified as acute or chronic (principal); G80.9 Cerebral palsy, unspecified; Z94.1 Heart transplant status; I10 Essential (primary) hypertension; Z20.822 Contact with and (suspected) exposure to COVID-19

== ENCOUNTER 2024-11-22 06:47 | Emergency (ER) | payer OTHER ==
[2024-11-22] VITALS (12 sets, daily range): BP systolic 98–119; BP diastolic 51–74
[~2024-11-22] VITALS: Ht 167.6 cm; Wt 78.4 kg
[~2024-11-22 06:47] MED LIST changes: +ZITHROMAX TRI-500 MG PO
[2024-11-22 07:54] LABS: BASO% 0.1 % (0-3); HEMATOCRIT 44.8 % (39.0-50.0); HEMOGLOBIN 14.1 g/dl (14.0-18.0); IMMATURE GRANULOCYTES 0.3 % (0.0-5.0); LYMPH% 5.5 % (15-41); MEAN CORPUSCULAR HGB CONC 31.5 g/dL CAL (32.0-36.0); MONO% 6.3 % (2-13); NEUT# 8.1 thou/uL (1.82-7.42); NEUT% 87.8 % (42-76); RED BLOOD COUNT 4.87 mill/uL (4.70-6.10); RED CELL DISTRI WIDTH 14.4 % (11.5-15.5)
[2024-11-22 08:09] LABS: ALBUMIN 3.7 g/dL (3.2-5.0); BILIRUBIN, TOTAL 0.4 mg/dL (0.2-1.3); CREATININE 0.2 mg/dL (0.7-1.3); POTASSIUM 4.6 mmol/l (3.5-5.1); TOTAL PROTEIN 6.3 g/dL (6.3-8.2)
[2024-11-22] MEDS ORDERED: MAGNESIUM OXIDE 400 MG/TAB PO ONE (10:15)
[2024-11-22] MEDS ORDERED: SODIUM CHLORIDE 0.9% 10 ML SYR IV SCH (12:35)
[2024-11-22] MEDS ORDERED: HEPARIN SODIUM FLUSH (PORCINE) 100 UNITS/ML 3 ML SYR IV PRN (12:35)
[2024-11-22] MEDS ORDERED: SODIUM CHLORIDE 0.9% 10 ML SYR IV PRN (12:35)
== END 2024-11-22 12:44 | disposition home or self-care (01) ==
LOC: ED 06:47
PROVIDERS: Family Medicine
DX: R00.2 Palpitations (principal); E83.42 Hypomagnesemia; I10 Essential (primary) hypertension; I25.811 Atherosclerosis of native coronary artery of transplanted heart without angina pectoris; Z95.5 Presence of coronary angioplasty implant and graft; Z94.1 Heart transplant status